=== PATIENT | female | born 1970 | race Caucasian/White ===

== ENCOUNTER 2017-08-23 14:11 | Emergency (ER) | payer OTHER | END 2017-08-23 19:40 | disposition home or self-care (01) | LOC: FTE 14:11 | DX: M25.562 Pain in left knee (principal); E11.9 Type 2 diabetes mellitus without complications; Z79.4 Long term (current) use of insulin | CPT/HCPCS: 73562; 73610; 99283-25 ==

== ENCOUNTER 2018-05-31 20:03 | Emergency (ER) | payer OTHER ==
[2018-06-01] MEDS: KETOROLAC 30 MG INJ IM (00:40)
[2018-06-01] MEDS: morphine 4 MG/ML VIAL IM (00:40)
== END 2018-06-01 00:51 | disposition home or self-care (01) ==
LOC: FTE 20:03
DX: G56.03 Carpal tunnel syndrome, bilateral upper limbs (principal); E11.9 Type 2 diabetes mellitus without complications; Z79.4 Long term (current) use of insulin
CPT/HCPCS: 29125; 96372; 99284-25